=== PATIENT | female | born 1995 | race Caucasian/White ===

== ENCOUNTER 2017-05-26 15:58 | Inpatient (IN) | payer OTHER ==
[2017-05-26] MEDS ORDERED: RINGERS SOLUTION,LACTATED 1,000 ML IV PRN (17:26)
[2017-05-26 18:00] LABS: ABSOLUTE LYMPHOCYTES (AUTO) 1.5 10^3/uL (0.5-4.7); ABSOLUTE MONOCYTES (AUTO) 0.8 10^3/uL (0.1-1.4); ABSOLUTE NEUT (AUTO) 9.9 10^3/uL (1.7-8.2); BASOPHILS % (AUTO) 0.1 % (0-2); EOSINOPHILS % (AUTO) 0.1 % (0-6); HEMATOCRIT 37.4 % (36.0-47.0); HEMOGLOBIN 12.3 g/dL (12.0-15.5); LYMPHOCYTES % (AUTO) 12.2 % (13-45); MEAN CORPUSCULAR HEMOGLOBIN 25.1 pg (27.0-33.4); MEAN CORPUSCULAR HGB CONC 32.8 g/dL (32.0-36.0); MEAN CORPUSCULAR VOLUME 76 fl (80-97); MONOCYTES % (AUTO) 6.4 % (3-13); PLATELET COUNT 242 10^3/uL (150-450); RED CELL DISTRIBUTION WIDTH 15.4 % (11.5-14.0); SEGMENTED NEUTROPHILS % (AUTO) 81.2 % (42-78); TOTAL CELLS COUNTED % (AUTO) 100 %; WHITE BLOOD COUNT 12.2 10^3/uL (4.0-10.5)
[2017-05-26] MEDS ORDERED: MISOPROSTOL 0.2 MG TABLET ONE (18:01)
[2017-05-26] MEDS ORDERED: LIDOCAINE 1% INJ-PF (10 MG/ML) 30 ML SDV ONE (18:01)
[2017-05-26] MEDS ORDERED: OXYTOCIN/NORMAL SALINE 20 UNIT/1,000 ML RTUINJ ONE (18:01)
[2017-05-26] MEDS ORDERED: ACETAMINOPHEN WITH CODEINE #3 TABLET ONE (22:03)
[2017-05-26] MEDS ORDERED: IBUPROFEN 800 MG TABLET ONE (22:04)
[2017-05-26] MEDS ORDERED: ZOLPIDEM TARTRATE 5 MG TABLET PO PRN (22:23)
[2017-05-26] MEDS ORDERED: ACETAMINOPHEN 650 MG SUPP.RECT PR PRN (22:23)
[2017-05-26] MEDS ORDERED: PSEUDOEPHEDRINE HCL 30 MG TABLET PO PRN (22:23)
[2017-05-26] MEDS ORDERED: GLYCERIN/WITCH HAZEL LEAF 1 EACH MED..PAD TP PRN (22:23)
[2017-05-26] MEDS ORDERED: DIPHENHYDRAMINE HCL 25 MG CAPSULE PO PRN (22:23)
[2017-05-26] MEDS ORDERED: DIPH/PERTUSS(ACELL)/TETANUS VAC/PF 0.5 ML SYR (>=10YO) IM PRN (22:23)
[2017-05-26] MEDS ORDERED: MEASLES,MUMPS&RUBELLA VACC/PF 0.5 ML VIAL SUBCUT PRN (22:23)
[2017-05-26] MEDS ORDERED: PROMETHAZINE HCL INJ 25 MG/1 ML VIAL IV PRN (22:23)
[2017-05-26] MEDS ORDERED: PROMETHAZINE HCL 25 MG TABLET PO PRN (22:23)
[2017-05-26] MEDS ORDERED: PROMETHAZINE HCL 25 MG SUPP.RECT PR PRN (22:23)
[2017-05-26] MEDS ORDERED: MAGNESIUM HYDROXIDE SUSP 30 ML UDCUP PO PRN (22:23)
[2017-05-26] MEDS ORDERED: DIBUCAINE 1% OINTMENT 28 GM TP PRN (22:23)
[2017-05-26] MEDS ORDERED: OXYTOCIN/NORMAL SALINE 20 UNIT/1,000 ML RTUINJ IV PRN (22:23)
[2017-05-26] MEDS ORDERED: ACETAMINOPHEN WITH CODEINE #3 TABLET PO PRN ×2 (22:23)
[2017-05-26] MEDS ORDERED: NA PHOS,M-B/NA PHOS,DI-BA (ADULT) 133 ML ENEMA PR PRN (22:23)
[2017-05-27 00:16] LABS: RUBELLA INTERPRETATION POSITIVE
--- NOTE | 2017-05-27 00:27 | Admission Physical ---
Datetime Report Generated by CPN: 05/27/2017 00:27 CURRENT ADMISSION Chief Complaint: Uterine Contractions Chief Complaint Other: Contractions began at 1400 Indication for Induction: Term, Intrauterine Admit Plan: Admit to Unit; Initiate Labor Protocol ALLERGIES Medication Allergies: No Medication Allergies: No Known Allergies (05/26/2017) Medication Allergies: none Latex: No Latex Allergies Food Allergies: none OBSTETRICAL HISTORY EDC: 06/03/2017 00:00 : 1 Para: 0 Term: 0 : 0 SAB: 0 IAB: 0 Ectopic: 0 Livin Cesareans: 0 VBACs: 0 Multiple Births: 0 Gestational Diabetes: No Rh Sensitization: No Incompetent Cervix: No ALLYSON: No Infertility: No ART Treatment: No Uterine Anomaly: No IUGR: No Hx Previous C/S: No Macrosomia: No Hx Loss/Stillborn: No PIH: No Hx : No Placenta Previa/Abruption: No Depression/PP Depression: No PTL/PROM: No Post Hemorrhage: No Current Procedures: Ultrasound Obstetrical History Comments: G1:current SEE RECORDS Alcohol: No Marijuana : No Cocaine: No Other Illicit Drugs: No Cigarettes: Never Smoker. [id number] MEDICAL HISTORY Diabetes: No Blood Transfusion: No Pulmonary Disease (Asthma, TB): No Breast Disease: No Hypertension: No Roustabout Surgery: No Heart Disease: No Hosp/Surgery: No Autoimmune Disorder: No Anesthetic Complications: No Kidney Disease: No Abnormal Pap Smear: No Neuro/Epilepsy: No Psychiatric Disorders: No Other Medical Diseases: No Hepatitis/Liver Disease: No Significant Family History: No Varicosities/Phlebitis: No Trauma/Violence : No Thyroid Dysfunction: No INFECTIOUS HISTORY Gonorrhea: No Genital Herpes: No Chlamydia: No Tuberculosis: No Syphilis: No Hepatitis: No HIV/AIDS Exposure: No Rash or Viral Illness: No HPV: No PHYSICAL EXAM General: Normal HEENT: Normal Neurologic: Normal Thyroid: Normal Heart: Normal Lungs: Normal Breast: Normal Back: Normal Abdomen: Normal Genitourinary Exam: Normal Extremities: Normal DTRs: Normal Pelvic Type: Adequate VAGINAL EXAM Station: - Contraction Comments: every 3-4 minutes MEMBRANES Membranes: Intact FETUS A EGA: 38.6 Monitoring: External US FHR- Baseline: 140 Variability: Moderate 6-25bpm Accelerations: 10X10 Decelerations: None Admit Comment: Primagravida receiving regular care at HD admitted at 38 wks 6d in active labor. records unavailable. PLANS FOR LABOR AND DELIVERY Labor and Delivery: None Pain Management: Natural Feeding Preference: Breast Benefit of Breast Feed Discussed: Yes Circumcision: N/A INFORMED CONSENT Signature: with User ID: [email or web address]
--- NOTE | 2017-05-27 00:41 | Delivery Summary ---
Del Sum A-C Datetime Report Generated by CPN: 05/27/2017 00:40 DELIVERY PERSONNEL DELIVERY PERSONNEL: [id number] Delivery Doctor:: Bijan Spencer MD Labor and Delivery Nurse:: Lupis Mckee RN Nursery Nurse:: Olga Felder RN School Transportation Director/MARKETING RECRUITER: Sola Whitea, MARKETING RECRUITER MATERNAL INFORMATION Delivery Anesthesia: None Medications After Delivery: Pitocin Bolus-Please Comment Meds After Delivery Comment: pitocin 20 units/1000 ml NS Estimated Blood Loss (ml): 500 Maternal Complications: None Provider Comments: Difficult labor due to back discomfort. Baby OP. Rapid active phase so no epidural. Baby did finally rotate to OA and deliver. Meconium staining. Suctioned on perineum but transfered quickly to [facility] for nursery nurse management. LABOR SUMMARY EDC: 06/03/2017 00:00 No. Babies in Womb: 1 Attempted: No Labor Anesthesia: None LABOR INFORMATION Reason for Induction: Not Applicable Onset of Labor: 05/26/2017 16:18 Complete Dilatation: 05/26/2017 19:49 Group B Beta Strep: negative Antibiotics # of Doses: 0 Antibiotics Time of Last Dose: n/a Steroids Given: None Reason Steroids Not Administered: Not Applicable MEMBRANES Membranes Rupture Method: Spontaneous Rupture of Membranes: 05/26/2017 19:00 Length of Rupture (hr): 2.73 Amniotic Fluid Color: Moderate Meconium Amniotic Fluid Amount: Small Amniotic Fluid Odor: Normal STAGES OF LABOR Stage 1 hr: 3 Stage 1 min: 31 Stage 2 hr: 1 Stage 2 min: 55 Stage 3 hr: 0 Stage 3 min: 5 Total Time in Labor hr: 5 Total Time in Labor min: 31 VAGINAL DELIVERY Episiotomy: None Laceration #1: Vaginal Laceration Extension #1: Second Degree Laceration #2: None Laceration #3: None Laceration Repair: Yes Laceration Repair Note: Small second degree vaginal laceration thru hymenal ring at 5 o'clock. Sutured with 3-0 vicryl. Sponge Count Correct: N/A Sharps Count Correct: N/A CSECTION DELIVERY Primary Indication: N/A Secondary Indication: N/A CSection Incidence: N/A Labor: N/A Elective: N/A CSection Incision: N/A BABY A INFORMATION Infant Delivery Date/Time: 05/26/2017 21:44 Method of Delivery: Vaginal Born in Route : No : N/A Forceps: N/A Vacuum Extraction: N/A Shoulder Dystocia : No PRESENTATION/POSITION BABY A Presentation: Cephalic Cephalic Presentation: Vertex Vertex Position: Occipital Anterior Breech Presentation: N/A PLACENTA INFORMATION BABY A Placenta Delivery Time : 05/26/2017 21:49 Placenta Method of Delivery: Spontaneous Placenta Status: Delivered SCORES BABY A Heart Rate 1 min: >100 bpm Resp Effort 1 min: Slow, Irregular Reflex Irritability 1 min: Cough or Sneeze or Pulls Away Muscle Tone 1 min: Some Flexion of Extremities Color 1 min: Blue/Pale Resuscitation Effort 1 min: Tactile Stimulation SCORE 1 MIN: 6 Heart Rate 5 min: >100 bpm Resp Effort 5 min: Good Cry Reflex Irritability 5 min: Cough or Sneeze or Pulls Away Muscle Tone 5 min: Active Motion Color 5 min: Body [place], Extremities Blue Resuscitation Effort 5 min: Tactile Stimulation SCORE 5 MIN: 9 INFORMATION BABY A Gestational Age at Delivery: 38.6 Gestational Status: Early Term- 37- 38.6 Weeks Outcome : Liveborn Infant Condition : Stable Sex: Female IDENTIFICATION BABY A Verification Date/Time: 05/26/2017 22:00 ID Band Number: [id number] Mother's Name Verified: Yes Infant RN Verifying : K. Eris, RN Additional Verifying Personnel: D. Annavance CORD INFORMATION BABY A No. Cord Vessels: 3 Nuchal Cord : N/A Cord Blood Taken: Yes-For Eval (Mom's Blood Type - or O+) Suction: Mouth; Nose ASSESSMENT BABY A Complications: Extended Bradycardia; Multiple Late Decels; Multiple Variable Decels; Meconium Physical Findings at Delivery: Caput Succedaneum Respirations: Intercostal Retractions Care By: Jonathan Felder RN Transferred To: NICU BABY B INFORMATION : N/A SIGNATURES Signature: with User ID: [email or web address]
[2017-05-27] MEDS: BENZOCAINE/MENTHOL AEROSOL SPRAY 56 ML TOP PRN (02:54)
[2017-05-27 04:44] LABS: APPEARANCE,URINE SLIGHTLY-CLOUDY; BILIRUBIN,URINE NEGATIVE (NEGATIVE); COLOR,URINE RED; GLUCOSE, URINE NEGATIVE (NEGATIVE); KETONES,URINE TRACE mg/dL (NEGATIVE); LEUKOCYTE ESTERASE,URINE SMALL (NEGATIVE); NITRITE,URINE NEGATIVE (NEGATIVE); PROTEIN,URINE 100 mg/dL (NEGATIVE); URINE SPECIFIC GRAVITY 1.008; UROBILINOGEN,URINE NEGATIVE mg/dL (<2.0)
[2017-05-27 04:58] LABS: URINE AMPHETAMINES SCREEN NEGATIVE; URINE BARBITURATES SCREEN NEGATIVE; URINE BENZODIAZEPINES SCREEN NEGATIVE; URINE COCAINE SCREEN NEGATIVE; URINE MARIJUANA (THC) SCREEN NEGATIVE; URINE METHADONE SCREEN NEGATIVE; URINE PHENCYCLIDINE SCREEN NEGATIVE
[2017-05-27] MEDS: IBUPROFEN 800 MG TABLET PO SCH ×3 (06:02→22:51)
[2017-05-27 06:40] LABS: HEMATOCRIT 31.5 % (36.0-47.0); HEMOGLOBIN 10.6 g/dL (12.0-15.5); MEAN CORPUSCULAR HEMOGLOBIN 25.5 pg (27.0-33.4); MEAN CORPUSCULAR HGB CONC 33.7 g/dL (32.0-36.0); MEAN CORPUSCULAR VOLUME 76 fl (80-97); PLATELET COUNT 254 10^3/uL (150-450); RED BLOOD COUNT 4.17 10^6/uL (3.72-5.28); RED CELL DISTRIBUTION WIDTH 15.8 % (11.5-14.0); WHITE BLOOD COUNT 18.3 10^3/uL (4.0-10.5)
--- NOTE | 2017-05-27 08:56 | PDOC PROGRESS REPORT ---
Subjective-OB Progress Note for:: 05/27/17 Subjective: PP day # 1 Pt is doing well, voiding without difficulty, lochia is stable, pain well controlled, bonding well with baby. Physical Exam (OB) Vital Signs: Intake & Output 05/26/17 05/27/17 05/28/17 06:59 06:59 06:59 Weight 83 kg - Lochia Lochia Amount: Scant < 10 ml Lochia Color: Rubra/Red - Abdomen Description: Soft Hernia Present: No Fundal Description: Firm, Midline Fundal Height: u/u - u/2 Objective-Diagnostic Laboratory: 05/27/17 06:20 05/26/17 05/26/17 05/27/17 17:40 17:40 04:10 WBC 12.2 H RBC 4.90 Hgb 12.3 Hct 37.4 MCV 76 L MCH 25.1 L MCHC 32.8 RDW 15.4 H Plt Count 242 Seg Neutrophils % 81.2 H Lymphocytes % 12.2 L Monocytes % 6.4 Eosinophils % 0.1 Basophils % 0.1 Absolute Neutrophils 9.9 H Absolute Lymphocytes 1.5 Absolute Monocytes 0.8 Absolute Eosinophils 0.0 Absolute Basophils 0.0 Urine Color RED Urine Appearance SLIGHTLY-CLOUDY Urine pH 6.0 Ur Specific [place] 1.008 Urine Protein 100 H Urine Glucose (UA) NEGATIVE Urine Ketones TRACE H Urine Blood LARGE H Urine Nitrite NEGATIVE Ur Leukocyte Esterase SMALL H Blood Type O POSITIVE Antibody Screen NEGATIVE 05/27/17 06:20 WBC 18.3 H RBC 4.17 Hgb 10.6 L Hct 31.5 L MCV 76 L MCH 25.5 L MCHC 33.7 RDW 15.8 H Plt Count 254 Seg Neutrophils % Lymphocytes % Monocytes % Eosinophils % Basophils % Absolute Neutrophils Absolute Lymphocytes Absolute Monocytes Absolute Eosinophils Absolute Basophils Urine Color Urine Appearance Urine pH Ur Specific [place] Urine Protein Urine Glucose (UA) Urine Ketones Urine Blood Urine Nitrite Ur Leukocyte Esterase Blood Type Antibody Screen Assessment and Plan(PN) - Assessment and Plan (1) Vaginal delivery Is this a current diagnosis for this admission?: Yes Plan: routine pp care - Time Spent with Patient Time with patient: Less than 15 minutes Critical Time spent with patient: Less than 15 minutes Medications reviewed and adjusted accordingly: Yes - Disposition Anticipated Discharge: Home Within: within 24 hours
[2017-05-27] MEDS: SENNOSIDES/DOCUSATE 8.6-50 MG 1 EACH TABLET PO SCH (09:36)
[2017-05-27] MEDS: DOCUSATE SODIUM 100 MG CAPSULE PO SCH ×2 (09:37→17:38)
[2017-05-27] MEDS: FERROUS SULFATE 325 MG TABLET PO SCH ×2 (09:38→17:38)
[2017-05-27] MEDS: FAMOTIDINE 20 MG TABLET PO SCH ×2 (09:38→22:51)
[2017-05-27] MEDS: PRENATAL VITAMIN W DHA CAPSULE PO SCH (09:40)
[2017-05-28] MEDS: IBUPROFEN 800 MG TABLET PO SCH (08:05)
[2017-05-28 08:45] VITALS: BP 100/53
--- NOTE | 2017-05-28 08:53 | PDOC PROGRESS REPORT ---
Subjective-OB Progress Note for:: 05/28/17 Subjective: pt denies any complaints Physical Exam (OB) Vital Signs: Temp Pulse Resp BP Pulse Ox 98.0 F 69 16 100/53 L 97 05/28/17 07:59 05/28/17 07:59 05/28/17 07:59 05/28/17 07:59 05/28/17 07:59 Intake & Output 05/27/17 05/28/17 05/29/17 06:59 06:59 06:59 Intake Total 300 Balance 300 Weight 83 kg - General General Appearance: Appears well - PIH/Pre-Eclampsia DTR's: 2 + Clonus: Negative Headache: Absent Epigastric Pain: No Visual Changes: No - Lochia Lochia Amount: Scant < 10 ml Lochia Color: Rubra/Red - Abdomen Description: Soft, Flat Hernia Present: No Bowel Sounds: Normoactive Flatus Presence: Present Stool: Yes Fundal Description: Firm, Midline Fundal Height: u/u - u/2 - Respiratory Breath sounds: Clear - Extremities Calf: Normal Objective-Diagnostic Laboratory: 05/27/17 06:20 Assessment and Plan(PN) - Time Spent with Patient Medications reviewed and adjusted accordingly: Yes - Disposition Anticipated Discharge: Home
[2017-05-28] MEDS: PRENATAL VITAMIN W DHA CAPSULE PO SCH (11:15)
[2017-05-28] MEDS: DOCUSATE SODIUM 100 MG CAPSULE PO SCH (11:15)
[2017-05-28] MEDS: FERROUS SULFATE 325 MG TABLET PO SCH (11:16)
[2017-05-28] MEDS: SENNOSIDES/DOCUSATE 8.6-50 MG 1 EACH TABLET PO SCH (11:17)
[2017-05-28] MEDS: FAMOTIDINE 20 MG TABLET PO SCH (11:22)
[2017-05-28] MEDS: BENZOCAINE/MENTHOL AEROSOL SPRAY 56 ML TOP PRN (11:22)
--- NOTE | 2017-05-28 12:34 | PDOC DISCHARGE SUMMARY ---
Final Diagnosis Discharge Date: 05/28/17 - Final Diagnosis (1) Is this a current diagnosis for this admission?: Yes (2) Vaginal delivery Is this a current diagnosis for this admission?: Yes Discharge Data - Discharge Medication Prescriptions: Ibuprofen [Motrin 800 mg Tablet] 800 mg PO Q8 #90 tablet Home Medications: Pnv No.95/Ferrous Fum/Folic AC [ Multivitamin Tablet] 1 each PO DAILY Ibuprofen [Motrin 800 mg Tablet] 800 mg PO Q8 #90 tablet 05/28/17 Reason(s) for Admission: Onset of Labor Procedures: None Intrapartum Procedure(s): Spontaneous Vaginal Delivery - Diagnosis Test Laboratory: Temp Pulse Resp BP Pulse Ox 98.0 F 69 16 100/53 L 97 05/28/17 11:42 05/28/17 11:42 05/28/17 11:42 05/28/17 11:42 05/28/17 11:42 05/26/17 05/27/17 05/27/17 17:40 04:10 06:20 RBC 4.90 4.17 Hgb 12.3 10.6 L Hct 37.4 31.5 L Urine Opiates Screen UNCONFIRMED POSITIVE - Discharge information/Instructions Discharge Activity: Activity As Tolerated, Balance Activity w/Rest, No Lifting/ Push/Pulling, Pelvic Rest Discharge Diet: As Tolerated Disposition: HOME, SELF-CARE Follow up with: [facility] in: 6
[2017-05-28 14:39] LABS: HEPATITIS C VIRUS AB <0.1 s/co ratio (0.0-0.9)
[2017-05-28 15:24] LABS: HEPATITS B SURFACE ANTIGEN Negative (Negative)
[2017-05-28 17:41] LABS: VARICELLA ZOSTER IGG AB <135 index (Immune >165)
== END 2017-05-28 13:18 | disposition home or self-care (01) | DRG 775 ==
LOC: LC 15:58 → LR 17:34 → 2S 05-27 00:26
PROVIDERS: ADMIT Obstetrics & Gynecology; ATTEND Obstetrics & Gynecology
PROC: 10E0XZZ Delivery of Products of Conception, External Approach (ICD-10-PCS; principal; 2017-05-26)
PROC: 0KQM0ZZ Repair Perineum Muscle, Open Approach (ICD-10-PCS; 2017-05-26)
DX: O77.0 Labor and delivery complicated by meconium in amniotic fluid (principal); O76 Abnormality in fetal heart rate and rhythm complicating labor and delivery; O70.1 Second degree perineal laceration during delivery; Z3A.38 38 weeks gestation of pregnancy; Z37.0 Single live birth
CPT/HCPCS: 36415; 59025; 80307; 80361; 81005; 85025; 85027; 86592; 86701; 86762; 86787; 86803; 86804; 86850; 86900; 86901; 87340; 88307; J2590; J3490

== ENCOUNTER 2018-06-24 16:52 | Emergency (ER) | payer OTHER ==
[2018-06-24] MEDS ORDERED: NORMAL SALINE 1000 ML 1,000 ML IV ONE (18:38)
--- NOTE | 2018-06-24 18:39 | ER Document Report ---
ED Medical Screen (RME) - General Chief Complaint: Dizziness Stated Complaint: DIZZY, HEADACHE, TROUBLE BREATHING, HEARTRATE ISSU Time Seen by Provider: 06/24/18 18:30 Primary Care Provider: ELIZABETH HANNAH MD [Primary Care Provider] - Follow up as needed TRAVEL OUTSIDE OF THE [place] IN LAST 30 DAYS: No - HPI Patient complains to provider of: Shortness of breath, diaphoresis, chest pain Notes: 06/24/18 18:38 Patient is a 23-year-old female who is currently 35 weeks presenting to the emergency room complaining of an episode of chest pain with shortness of breath, dizziness and diaphoresis that occurred shortly before coming to the emergency department, she recently had a OB ultrasound and was told that there was low fluid around the baby, she has attempted to drink more fluids over the last few days because of this 06/24/18 18:39 RAPID MEDICAL EVALUATION DISCLOSURE I have seen this patient as part of a Rapid Medical Evaluation and, if applicable, placed any initially appropriate orders. The patient will be seen and fully evaluated, including a full history and physical exam, by a provider (in Main ED or Fast Track) when a room becomes available. - Related Data Allergies/Adverse Reactions: No Known Allergies Allergy (Verified 06/24/18 18:20) Past Medical History - Social History Frequency of alcohol use: None Drug Abuse: None Renal/ Medical History: Denies: Hx Peritoneal Dialysis - Immunizations History of Influenza Vaccine for 01/2017 - 06/2017 Season: Refused Physical Exam - Vital signs Vitals: Temp Pulse Resp BP Pulse Ox 98.4 F 111 H 16 141/80 H 99 06/24/18 17:32 06/24/18 17:32 06/24/18 17:32 06/24/18 17:32 06/24/18 17:32 Course - Vital Signs Vital signs: Temp Pulse Resp BP Pulse Ox 98.4 F 111 H 16 141/80 H 99 06/24/18 17:32 06/24/18 17:32 06/24/18 17:32 06/24/18 17:32 06/24/18 17:32 Doctor's Discharge - Discharge Referrals: ELIZABETH HANNAH MD [Primary Care Provider] - Follow up as needed
[2018-06-24 19:12] LABS: ABSOLUTE BASOPHILS # (AUTO) 0.1 10^3/uL (0.0-0.2); ABSOLUTE EOSINOPHILS # (AUTO) 0.1 10^3/uL (0.0-0.6); ABSOLUTE LYMPHOCYTES (AUTO) 2.2 10^3/uL (0.5-4.7); ABSOLUTE MONOCYTES (AUTO) 1.2 10^3/uL (0.1-1.4); ABSOLUTE NEUT (AUTO) 9.3 10^3/uL (1.7-8.2); BASOPHILS % (AUTO) 0.4 % (0-2); EOSINOPHILS % (AUTO) 0.7 % (0-6); HEMATOCRIT 39.2 % (36.0-47.0); HEMOGLOBIN 13.1 g/dL (12.0-15.5); LYMPHOCYTES % (AUTO) 17.3 % (13-45); MEAN CORPUSCULAR HEMOGLOBIN 26.3 pg (27.0-33.4); MEAN CORPUSCULAR HGB CONC 33.4 g/dL (32.0-36.0); MEAN CORPUSCULAR VOLUME 79 fl (80-97); MONOCYTES % (AUTO) 9.2 % (3-13); PLATELET COUNT 229 10^3/uL (150-450); RED BLOOD COUNT 4.98 10^6/uL (3.72-5.28); SEGMENTED NEUTROPHILS % (AUTO) 72.4 % (42-78); TOTAL CELLS COUNTED % (AUTO) 100 %; WHITE BLOOD COUNT 12.8 10^3/uL (4.0-10.5)
[2018-06-24 19:21] LABS: AMORPHOUS SEDIMENT,URINE TRACE /HPF; APPEARANCE,URINE CLOUDY; BILIRUBIN,URINE NEGATIVE (NEGATIVE); COLOR,URINE YELLOW; GLUCOSE, URINE NEGATIVE (NEGATIVE); KETONES,URINE NEGATIVE (NEGATIVE); LEUKOCYTE ESTERASE,URINE LARGE (NEGATIVE); NITRITE,URINE NEGATIVE (NEGATIVE); PROTEIN,URINE NEGATIVE (NEGATIVE); URINE SPECIFIC GRAVITY 1.016; UROBILINOGEN,URINE NEGATIVE mg/dL (<2.0)
[2018-06-24 19:34] LABS: ALANINE AMINOTRANSFERASE 22 U/L (9-52); ALBUMIN 3.8 g/dL (3.5-5.0); ALKALINE PHOSPHATASE 136 U/L (38-126); ANION GAP 9 (5-19); ASPARTATE AMINO TRANSFERASE 24 U/L (14-36); BILIRUBIN,DIRECT 0.1 mg/dL (0.0-0.4); BILIRUBIN,TOTAL 0.3 mg/dL (0.2-1.3); BLOOD UREA NITROGEN 8 mg/dL (7-20); CALCIUM 9.7 mg/dL (8.4-10.2); CARBON DIOXIDE 23 mmol/L (22-30); CHLORIDE 104 mmol/L (98-107); GLUCOSE 76 mg/dL (75-110); POTASSIUM 4.1 mmol/L (3.6-5.0); SODIUM 135.6 mmol/L (137-145); TOTAL PROTEIN 7.2 g/dL (6.3-8.2)
--- NOTE | 2018-06-24 21:05 | ER Document Report ---
ED General - General Chief Complaint: Dizziness Stated Complaint: DIZZY, HEADACHE, TROUBLE BREATHING, HEARTRATE ISSU Time Seen by Provider: 06/24/18 18:30 Primary Care Provider: ELIZABETH HANNAH MD [Primary Care Provider] - Follow up as needed TRAVEL OUTSIDE OF THE [place] IN LAST 30 DAYS: No - HPI Patient complains to provider of: , dizzy, headache, difficulty breathing Onset: This morning Onset/Duration: Waxing and waning Quality of pain: Achy Severity: Moderate Pain Level: 3 Associated symptoms: Shortness of breath Exacerbated by: Denies Relieved by: Denies Similar symptoms previously: No Recently seen / treated by doctor: Yes Notes: Patient is a 23-year-old female who is currently 35 weeks presenting to the emergency room complaining of an episode of chest pain with shortness of breath, dizziness and diaphoresis that occurred shortly before coming to the emergency department, she recently had a OB ultrasound and was told that there was low fluid around the baby, she has attempted to drink more fluids over the last few days because of this - Related Data Allergies/Adverse Reactions: No Known Allergies Allergy (Verified 06/24/18 18:20) Past Medical History - General Information source: Patient - Social History Smoking Status: Never Smoker Frequency of alcohol use: None Drug Abuse: None Family History: Reviewed & Not Pertinent Patient has suicidal ideation: No Patient has homicidal ideation: No Renal/ Medical History: Denies: Hx Peritoneal Dialysis Review of Systems - Review of Systems Constitutional: No symptoms reported EENT: No symptoms reported Cardiovascular: See HPI Respiratory: See HPI Gastrointestinal: No symptoms reported Genitourinary: No symptoms reported Female Genitourinary: No symptoms reported Musculoskeletal: No symptoms reported Skin: No symptoms reported Hematologic/Lymphatic: No symptoms reported Neurological/Psychological: See HPI -: Yes All other systems reviewed and negative Physical Exam - Vital signs Vitals: Temp Pulse Resp BP Pulse Ox 98.4 F 111 H 16 141/80 H 99 06/24/18 17:32 06/24/18 17:32 06/24/18 17:32 06/24/18 17:32 06/24/18 17:32 Interpretation: Normal - General General appearance: Appears well, Alert - HEENT Head: Normocephalic, Atraumatic Eyes: Normal Pupils: PERRL - Respiratory Respiratory status: No respiratory distress Chest status: Nontender Breath sounds: Normal Chest palpation: Normal - Cardiovascular Rhythm: Regular Heart sounds: Normal auscultation Murmur: No - Abdominal Inspection: Gravid female Distension: No distension Bowel sounds: Normal Tenderness: Nontender Organomegaly: No organomegaly - Back Back: Normal, Nontender - Extremities General upper extremity: Normal inspection, Nontender, Normal color, Normal ROM, Normal temperature General lower extremity: Normal inspection, Nontender, Normal color, Normal ROM, Normal temperature, Normal weight bearing. No: Levi's sign - Neurological Neuro grossly intact: Yes Cognition: Normal Orientation: AAOx4 [place] Coma Scale Eye Opening: Spontaneous [place] Coma Scale Verbal: Oriented [place] Coma Scale Motor: Obeys Commands [place] Coma Scale Total: 15 Speech: Normal Motor strength normal: LUE, RUE, LLE, RLE Sensory: Normal - Psychological Associated symptoms: Normal affect, Normal mood - Skin Skin Temperature: Warm Skin Moisture: Dry Skin Color: Normal Course - Re-evaluation Re-evalutation: 06/24/18 21:04 Lab and EKG findings discussed with patient at bedside, she was noted to have elevated blood pressure, however has no lower extremity edema no protein in her urine so unlikely preeclamptic, advised to follow-up with primary care and [facility], she does have leukocyte esterase in her urine, although no signs and symptoms of your Sonu tract infection and multiple epithelial cells in the sample given the fact that she is 35 weeks and will treat her with antibiotics for urinary tract infection to decrease the chances of complications related to this, patient advised to return if symptoms worsen or any additional concerns, patient acknowledges understanding and agreement with this plan 06/24/18 21:21 - Vital Signs Vital signs: Temp Pulse Resp BP Pulse Ox 97.9 F 100 18 142/87 H 97 06/24/18 21:18 06/24/18 21:18 18 21:18 06/24/18 21:18 06/24/18 21:18 - Laboratory Result Diagrams: 06/24/18 18:56 06/24/18 18:56 Laboratory results interpreted by me: 06/24/18 06/24/18 06/24/18 18:56 18:56 18:56 WBC 12.8 H MCV 79 L MCH 26.3 L RDW 15.0 H Absolute Neutrophils 9.3 H Sodium 135.6 L Alkaline Phosphatase 136 H Ur Leukocyte Esterase LARGE H - EKG Interpretation by Me EKG shows normal: Sinus rhythm Rate: Normal Rhythm: NSR Discharge - Discharge Clinical Impression: , Headache, UTI (urinary tract infection) Condition: Stable Disposition: HOME, SELF-CARE Instructions: Dizziness ([facility]), Headache ([facility]), Urinary Tract Infection ([facility]) Additional Instructions: Follow up with your primary care provider and [facility] in one to 2 days. Return to the emergency room immediately if symptoms worsen or any additional concerns. Prescriptions: Nitrofurantoin/Nitrofuran Mac [Macrobid 100 mg Capsule] 100 mg PO BID #20 capsule Referrals: ELIZABETH HANNAH MD [Primary Care Provider] - Follow up as needed
[2018-06-24 21:19] VITALS: BP 142/87
--- NOTE | 2018-06-25 00:17 | EKG REPORT ---
SEVERITY:- NORMAL ECG - SINUS RHYTHM : Confirmed by: Gyaatri Holly 25-Jun-2018 00:17:05
== END 2018-06-24 21:23 | disposition home or self-care (01) ==
LOC: ER 16:52
DX: O23.43 Unspecified infection of urinary tract in pregnancy, third trimester (principal); O26.893 Other specified pregnancy related conditions, third trimester; R42 Dizziness and giddiness; R51 Headache; R06.02 Shortness of breath; R61 Generalized hyperhidrosis; Z3A.35 35 weeks gestation of pregnancy
CPT/HCPCS: 93005; 99284; 36415; 87086; 85025; 80053; 81001; 93010; J7030

== ENCOUNTER 2018-07-10 07:11 | Outpatient (CLI) | payer OTHER ==
[2018-07-10] MEDS ORDERED: RINGERS SOLUTION,LACTATED 1,000 ML IV ONE (07:25)
[2018-07-10] MEDS ORDERED: RINGERS SOLUTION,LACTATED 1,000 ML IV PRN (07:25)
[2018-07-10] MEDS ORDERED: TERBUTALINE SULFATE INJ/PF 1 MG/1 ML SDV ONE (07:51)
[2018-07-10 07:55] LABS: APPEARANCE,URINE TURBID; BILIRUBIN,URINE NEGATIVE (NEGATIVE); COLOR,URINE YELLOW; GLUCOSE, URINE NEGATIVE (NEGATIVE); KETONES,URINE NEGATIVE (NEGATIVE); LEUKOCYTE ESTERASE,URINE LARGE (NEGATIVE); NITRITE,URINE NEGATIVE (NEGATIVE); PROTEIN,URINE NEGATIVE (NEGATIVE); URINE SPECIFIC GRAVITY 1.016; UROBILINOGEN,URINE NEGATIVE mg/dL (<2.0)
[2018-07-10 08:10] LABS: URINE AMPHETAMINES SCREEN NEGATIVE; URINE BARBITURATES SCREEN NEGATIVE; URINE BENZODIAZEPINES SCREEN NEGATIVE; URINE COCAINE SCREEN NEGATIVE; URINE MARIJUANA (THC) SCREEN NEGATIVE; URINE METHADONE SCREEN NEGATIVE; URINE PHENCYCLIDINE SCREEN NEGATIVE
[2018-07-10] MEDS ORDERED: TERBUTALINE SULFATE INJ/PF 1 MG/1 ML SDV SUBCUT ONE (08:14)
--- NOTE | 2018-07-10 09:16 | Non Stress Test Report ---
Non Stress Test Datetime Report Generated by CPN: 07/10/2018 09:16 DEMOGRAPHIC EGA NST: 37.0 INDICATION Indication for Study: Ordered by Provider MONITORING Monitor Explained: Monitor Explained; Test Explained; Patient Verbalized Understanding Time on Monitor: 07/10/2018 08:13 Time off Monitor: 07/10/2018 08:53 NST Duration: 40 NST INTERVENTIONS NST Interventions: PO Hydration; IV Fluids Physician Notified NST: Dr. Rivera BABY A: [id number] BABY A Movement : Present Contraction Frequency : irregular FHR Baseline : 145 Accelerations : 15X15 Decelerations : None Variability : Moderate 6-25bpm NST Review: Meets Criteria for Reactive NST NST Review and Verified By : JONATHON Goldsmith Results: Reactive NST REPORT Report Trigger: Send Report
== END 2018-07-10 09:04 | disposition home or self-care (01) ==
LOC: LC 07:11
PROVIDERS: ATTEND Obstetrics & Gynecology
PROC: 4A1HXCZ Monitoring of Products of Conception, Cardiac Rate, External Approach (ICD-10-PCS; principal; 2018-07-10)
DX: O32.1XX0 Maternal care for breech presentation, not applicable or unspecified (principal); Z3A.37 37 weeks gestation of pregnancy
CPT/HCPCS: 59025; 81005; 80307; J3105

== ENCOUNTER 2018-07-24 05:04 | Inpatient (IN) | payer OTHER ==
[2018-07-23 10:12] LABS: ABSOLUTE EOSINOPHILS # (AUTO) 0.1 10^3/uL (0.0-0.6); ABSOLUTE LYMPHOCYTES (AUTO) 1.6 10^3/uL (0.5-4.7); ABSOLUTE MONOCYTES (AUTO) 0.9 10^3/uL (0.1-1.4); BASOPHILS % (AUTO) 0.1 % (0-2); EOSINOPHILS % (AUTO) 0.9 % (0-6); HEMATOCRIT 36.3 % (36.0-47.0); HEMOGLOBIN 12.4 g/dL (12.0-15.5); LYMPHOCYTES % (AUTO) 16.8 % (13-45); MEAN CORPUSCULAR HGB CONC 34.2 g/dL (32.0-36.0); MEAN CORPUSCULAR VOLUME 76 fl (80-97); MONOCYTES % (AUTO) 9.1 % (3-13); PLATELET COUNT 208 10^3/uL (150-450); RED BLOOD COUNT 4.77 10^6/uL (3.72-5.28); RED CELL DISTRIBUTION WIDTH 15.7 % (11.5-14.0); SEGMENTED NEUTROPHILS % (AUTO) 73.1 % (42-78); TOTAL CELLS COUNTED % (AUTO) 100 %; WHITE BLOOD COUNT 9.6 10^3/uL (4.0-10.5)
[2018-07-23 10:30] LABS: APPEARANCE,URINE CLOUDY; BILIRUBIN,URINE NEGATIVE (NEGATIVE); COLOR,URINE YELLOW; GLUCOSE, URINE NEGATIVE (NEGATIVE); KETONES,URINE NEGATIVE (NEGATIVE); LEUKOCYTE ESTERASE,URINE LARGE (NEGATIVE); NITRITE,URINE NEGATIVE (NEGATIVE); PROTEIN,URINE NEGATIVE (NEGATIVE); URINE SPECIFIC GRAVITY 1.009; UROBILINOGEN,URINE NEGATIVE mg/dL (<2.0)
[2018-07-23 10:56] LABS: URINE AMPHETAMINES SCREEN NEGATIVE; URINE BARBITURATES SCREEN NEGATIVE; URINE BENZODIAZEPINES SCREEN NEGATIVE; URINE COCAINE SCREEN NEGATIVE; URINE MARIJUANA (THC) SCREEN NEGATIVE; URINE METHADONE SCREEN NEGATIVE; URINE PHENCYCLIDINE SCREEN NEGATIVE
[2018-07-24] MEDS ORDERED: CEFAZOLIN 1 GM/D5W RTU 1 GM/50 ML RTUPB IV PRN (05:34)
[2018-07-24] MEDS ORDERED: CEFAZOLIN 2 GM/D5W RTU 2 GM/50 ML RTUPB IV PRN (05:50)
[2018-07-24] MEDS ORDERED: FENTANYL CITRATE INJ/PF 100 MCG/2 ML AMPUL ONE (06:44)
[2018-07-24] MEDS ORDERED: OXYTOCIN 10 UNIT/ML VIAL ONE (06:44)
[2018-07-24] MEDS ORDERED: ONDANSETRON HCL INJ/PF 4 MG/2 ML SDV ONE ×2 (06:45→09:24)
[2018-07-24] MEDS ORDERED: MIDAZOLAM 2 MG/2 ML INJ ONE (06:45)
[2018-07-24] MEDS ORDERED: OXYTOCIN/NORMAL SALINE 20 UNIT/1,000 ML RTUINJ ONE ×2 (06:45→10:37)
[2018-07-24] MEDS ORDERED: RINGERS SOLUTION,LACTATED 1,000 ML IV ONE (07:30)
[2018-07-24] MEDS ORDERED: DIPHENHYDRAMINE HCL 50 MG/ML VIAL IV PRN (08:08)
[2018-07-24] MEDS ORDERED: PROMETHAZINE HCL INJ 25 MG/1 ML VIAL IV PRN ×2 (08:08→08:47)
[2018-07-24] MEDS ORDERED: MORPHINE SULFATE 10 MG/ML INJ IV PRN (08:08)
[2018-07-24] MEDS ORDERED: ONDANSETRON HCL INJ/PF 4 MG/2 ML SDV IV PRN (08:08)
[2018-07-24] MEDS ORDERED: FENTANYL CITRATE INJ/PF 100 MCG/2 ML AMPUL IV PRN ×3 (08:08)
[2018-07-24] MEDS ORDERED: MEPERIDINE HCL/PF INJ 25 MG/1 ML DISP.SYRIN IV PRN (08:08)
[2018-07-24] MEDS ORDERED: NALBUPHINE HCL INJ 10 MG/1 ML AMPULE IM ONE (08:09)
[2018-07-24] MEDS ORDERED: RINGERS SOLUTION,LACTATED 1,000 ML IV PRN (08:47)
[2018-07-24] MEDS ORDERED: DIPH/PERTUSS(ACELL)/TETANUS VAC/PF 0.5 ML SYR (>=10YO) IM PRN (08:47)
[2018-07-24] MEDS ORDERED: MEASLES,MUMPS&RUBELLA VACC/PF 0.5 ML VIAL SUBCUT PRN (08:47)
[2018-07-24] MEDS ORDERED: OXYTOCIN/NORMAL SALINE 20 UNIT/1,000 ML RTUINJ IV PRN (08:47)
[2018-07-24] MEDS ORDERED: ACETAMINOPHEN 325 MG TABLET PO PRN (08:47)
[2018-07-24] MEDS ORDERED: SIMETHICONE 80 MG TAB.CHEW PO PRN (08:47)
[2018-07-24] MEDS ORDERED: OXYCODONE-ACETAMINOPHEN 5-325 MG TABLET PO PRN (08:47)
[2018-07-24] MEDS ORDERED: ACETAMINOPHEN 1,000 MG/100 ML RTUPB IV PRN (08:47)
--- NOTE | 2018-07-24 08:50 | PDOC DELIVERY SUMMARY ---
Delivery Summary - Maternal Hx : II Ruptured Membranes: AROM Time of Rupture: 08:12 Fluids: Clear - Delivery Presentation: Breech Heart Rate Monitoring: Done Pre-Operatively Support Person Present: Yes Location: LD : Scheduled Placenta: Within Normal Limits Delivery of Placenta Date: 07/24/18 Delivery of Placenta Time: 08:13 - Medications Type of Anesthesia:: Spinal - Assess and Care Baby 1 Male Delivery of Date: 07/24/18 Delivery of Time: 08:12 at 1 minute: 9 at 5 minutes: 9 Preprinted Number On Band: [id number] Infant Skin to Skin: Yes Skin to Skin (Mins): 5 To Nursery At: 08:25 Mode of Transport: Bassinet - Delivery Personnel Packing And Final Assembly Supervisor: ISIDORO FOSTER RN: ABRAHAM ANGELA RN RN: ANANYA BENNETT MD: BELKYS YOUNG
--- NOTE | 2018-07-24 08:52 | Operative Report ---
Operative Report DATE OF SURGERY: 07/24/18 PREOPERATIVE DIAGNOSIS: Noah breech presentation POSTOPERATIVE DIAGNOSIS: Same OPERATION: Primary via low transverse uterine incision SURGEON: BELKYS YOUNG ANESTHESIA: Spinal TISSUE REMOVED OR ALTERED: Placenta COMPLICATIONS: None ESTIMATED BLOOD LOSS: 250 cc INTRAOPERATIVE FINDINGS: Viable male in noah breech presentation, normal uterus tubes and ovaries PROCEDURE: Patient was taken to the OR and placed in supine position after her spinal anesthesia. She is prepared and draped in sterile fashion. Mcarthur was placed for drainage of the bladder. Low transverse incision was made and carried down the level of the fascia. The fascial incision was made with knife and extended bilaterally with curved Putnam scissors. The fascia was off the rectus muscles using sharp and blunt dissection. The rectus muscles are in the midline. The peritoneum was entered without incident. Bladder blade was placed in uterine segment was identified. A low transverse incision was made creating a bladder flap. Bladder blade was placed low transverse uterine incision was made with the knife and extended with fingertips. The baby was delivered with some fundal pressure in a noah breech fashion. Mouth and nose were suctioned free. The cord is doubly clamped and cut. Baby is passed off to the melter helper in attendance. The placenta was manually extracted with trailing membranes. The uterus was externalized wrapped in a moist lap sponge. Uterine contents wiped free. Uterus was closed with a running locking layer of 0 chromic suture using the second layer to imbricate the first completing a double layer closure of the uterus. The serosa was closed with a running 2-0 chromic stitch. The pelvis was irrigated and suctioned free of fluid the uterus was replaced in the abdomen. The abdominal wall peritoneum was closed with running 2-0 chromic stitch. Fascia was closed with a running 0 Vicryl in 2 segments. Sabrina's layer was brought together with 0 plain gut stitch and the skin was closed with running subcuticular 4-0 undyed Vicryl stitch. The wound was dressed mother and baby did well.
[2018-07-24] MEDS ORDERED: NALBUPHINE HCL INJ 10 MG/1 ML AMPULE ONE (08:53)
[2018-07-24] MEDS ORDERED: KETOROLAC TROMETHAMINE INJ/PF 30 MG/1 ML SDV ONE (08:53)
[2018-07-24] MEDS ORDERED: ACETAMINOPHEN 1,000 MG/100 ML RTUPB IV ONE (08:54)
[2018-07-24] MEDS: KETOROLAC TROMETHAMINE INJ/PF 30 MG/1 ML SDV IV SCH ×2 (09:07→17:48)
[2018-07-24] MEDS ORDERED: METHYLERGONOVINE MALEATE INJ/PF 0.2 MG/1 ML AMPULE ONE (09:15)
[2018-07-24] MEDS ORDERED: METHYLERGONOVINE MALEATE INJ/PF 0.2 MG/1 ML AMPULE IV ONE (10:00)
[2018-07-24] MEDS ORDERED: HYDROMORPHONE HCL INJ/PF 2 MG/ML AMPULE ONE (10:21)
[2018-07-24] MEDS: HYDROMORPHONE HCL INJ/PF 2 MG/ML AMPULE IV PRN ×3 (10:24→19:54)
[2018-07-24] MEDS: DOCUSATE SODIUM 100 MG CAPSULE PO SCH (17:48)
[2018-07-25] MEDS: OXYCODONE-ACETAMINOPHEN 5-325 MG TABLET PO PRN ×2 (00:12→09:04)
[2018-07-25] MEDS: KETOROLAC TROMETHAMINE INJ/PF 30 MG/1 ML SDV IV SCH ×3 (01:16→20:26)
[2018-07-25] MEDS ORDERED: LACTATED RINGERS 1000 ML IV PRN (05:00)
[2018-07-25] MEDS ORDERED: LIDOCAINE 0.5% INJ-PF (5 MG/ML) 50 ML SDV SUBCUT PRN (05:00)
[2018-07-25 07:22] LABS: HEMATOCRIT 35.9 % (36.0-47.0); HEMOGLOBIN 11.8 g/dL (12.0-15.5); MEAN CORPUSCULAR HEMOGLOBIN 25.1 pg (27.0-33.4); MEAN CORPUSCULAR HGB CONC 32.9 g/dL (32.0-36.0); MEAN CORPUSCULAR VOLUME 76 fl (80-97); PLATELET COUNT 207 10^3/uL (150-450); RED CELL DISTRIBUTION WIDTH 15.8 % (11.5-14.0); WHITE BLOOD COUNT 12.3 10^3/uL (4.0-10.5)
[2018-07-25] MEDS: DOCUSATE SODIUM 100 MG CAPSULE PO SCH ×2 (09:04→17:26)
[2018-07-25] MEDS: PRENATAL VITAMIN W DHA CAPSULE PO SCH (09:04)
--- NOTE | 2018-07-25 10:58 | PDOC PROGRESS REPORT ---
Subjective-OB Progress Note for:: 07/25/18 Physical Exam (OB) Vital Signs: Temp Pulse Resp BP Pulse Ox 98.3 F 86 14 117/60 97 07/25/18 08:40 07/25/18 08:40 07/25/18 08:40 07/25/18 08:40 07/25/18 08:40 Intake & Output 07/24/18 07/25/18 07/26/18 06:59 06:59 06:59 Intake Total 4400 350 Output Total 5600 Balance -1200 350 Weight 84.82 kg - PIH/Pre-Eclampsia DTR's: 1 + Clonus: Negative Headache: Absent Epigastric Pain: No Visual Changes: No - Dressing Removed: Yes Incision: Dressing - Lochia Lochia Amount: Scant < 10 ml Lochia Color: Rubra/Red - Abdomen Description: Soft Hernia Present: No Bowel Sounds: Normoactive Flatus Presence: Present Stool: No Fundal Description: Firm, Midline Fundal Height: u/u - u/2 Objective-Diagnostic Laboratory: 07/25/18 06:22 07/25/18 06:22 WBC 12.3 H RBC 4.70 Hgb 11.8 L Hct 35.9 L MCV 76 L MCH 25.1 L MCHC 32.9 RDW 15.8 H Plt Count 207
[2018-07-25] MEDS: IBUPROFEN 800 MG TABLET PO SCH ×4 (11:51→23:09)
[2018-07-26] MEDS: OXYCODONE-ACETAMINOPHEN 5-325 MG TABLET PO PRN (00:11)
[2018-07-26] MEDS: KETOROLAC TROMETHAMINE INJ/PF 30 MG/1 ML SDV IV SCH (05:07)
[2018-07-26] MEDS: IBUPROFEN 800 MG TABLET PO SCH (05:11)
--- NOTE | 2018-07-26 07:45 | PDOC DISCHARGE SUMMARY ---
Final Diagnosis Discharge Date: 07/26/18 - Final Diagnosis (1) delivery indicated due to breech presentation Is this a current diagnosis for this admission?: Yes (2) GDM (gestational diabetes mellitus) Is this a current diagnosis for this admission?: Yes Discharge Data - Discharge Medication Home Medications: Pnv No.95/Ferrous Fum/Folic AC [ Multivitamin Tablet] 1 each PO DAILY 05/26/17 Reason(s) for Admission: Ceasarean Section-Primary Procedures: None Intrapartum Procedure(s): : Low Cervical, Transverse - Diagnosis Test Laboratory: Temp Pulse Resp BP Pulse Ox 97.8 F 82 16 100/48 L 98 07/26/18 04:00 07/26/18 04:00 07/26/18 04:00 07/26/18 04:00 07/26/18 04:00 07/23/18 07/23/18 07/25/18 09:40 09:40 06:22 RBC 4.77 4.70 Hgb 12.4 11.8 L Hct 36.3 35.9 L Urine Opiates Screen NEGATIVE - Discharge information/Instructions Discharge Activity: Balance Activity w/Rest, No Lifting Over 10 Pounds, No Lifting/Push/Pulling, Pelvic Rest, No tub bath, Walk Frequently Discharge Diet: Regular Disposition: HOME, SELF-CARE Follow up with: [facility] in: 5, Days
[2018-07-26 08:12] VITALS: BP 112/46
[2018-07-26] MEDS: DOCUSATE SODIUM 100 MG CAPSULE PO SCH (09:24)
[2018-07-26] MEDS: PRENATAL VITAMIN W DHA CAPSULE PO SCH (09:24)
== END 2018-07-26 10:50 | disposition home or self-care (01) | DRG 788 ==
LOC: 2S 05:04
PROVIDERS: ADMIT Obstetrics & Gynecology; ATTEND Obstetrics & Gynecology
PROC: 10D00Z1 Extraction of Products of Conception, Low, Open Approach (ICD-10-PCS; principal; 2018-07-24 07:45)
DX: O32.1XX0 Maternal care for breech presentation, not applicable or unspecified (principal); O24.420 Gestational diabetes mellitus in childbirth, diet controlled; Z3A.00 Weeks of gestation of pregnancy not specified; Z37.0 Single live birth
CPT/HCPCS: 1961; 36415; 59025; 80307; 81001; 82962; 85025; 85027; 86850; 86900; 86901; 94799; J0131; J1170; J1885; J2210; J2250; J2300; J2405; J2590; J3010; J3490; J7120